=== PATIENT | female | born 1940 | race Asian ===

== ENCOUNTER 2018-09-22 05:10 | Emergency (ER) | payer MEDICARE, MEDICAID ==
[~2018-09-22] VITALS: Ht 147.3 cm; Wt 44.6 kg
[~2018-09-22 05:10] MED LIST: ACET-2119 PO; ATEN25TA PO; CALC-723 PO; CHOL5000 PO; CYAN100070 PO; GABA-530 PO; LISI-604 PO; LISI10TA4 PO; LOPE1TAB46 PO; LORA-641 PO; OLOP2.5D OP; ONDA8TAB12 PO; POLY17PO10 PO; PROC10TA10 PO; SERT25TA PO; TRAM50TA2 PO
[2018-09-22 05:59] LABS: CLARITY,URINE CLEAR (Clear); COLOR,URINE YELLOW (Yellow); GLUCOSE, URINE NEGATIVE (Neg); KETONES,URINE NEGATIVE (Neg); LEUKOCYTE ESTERASE ,URINE TRACE (Neg); NITRITES, URINE NEGATIVE (Neg); OCCULT BLOOD,URINE NEGATIVE (Neg); PH,URINE 6.5 (4.8-8.0); PROTEIN,URINE NEGATIVE (Neg); URINE HCG NEGATIVE (NEG); UROBILINOGEN,URINE 0.2 E.U/dL (0.2-1.0)
[2018-09-22 06:01] LABS: UA COLLECTION TYPE CLN CATCH MIDSTREAM
[2018-09-22 06:04] LABS: BASOPHILS % (AUTO) 0.3 % (0-1); EOSINOPHILS % (AUTO) 0.8 % (0-6); HEMATOCRIT 29.1 % (35.0-45.0); LYMPHOCYTES # (AUTO) 0.8 X10'3 (1.1-4.8); LYMPHOCYTES % (AUTO) 17.8 % (21-51); MEAN CORPUSCULAR HEMOGLOBIN 31.6 PG (27.0-31.0); MEAN CORPUSCULAR HGB CONC 34.3 g/dL (33.0-36.5); MEAN PLATELET VOLUME 7.2 FL (7.4-10.4); MONOCYTES # (AUTO) 0.3 X10'3 (0-0.9); MONOCYTES % (AUTO) 7.3 % (2-12); NEUTROPHILS # (AUTO) 3.3 X10'3 (1.8-7.7); NEUTROPHILS % (AUTO) 73.8 % (42-75); PLATELET COUNT 210 X10'3 (140-440); RED BLOOD COUNT 3.17 X10'6 (4.20-5.60); RED CELL DISTRIBUTION WIDTH 12.9 % (11.5-14.5); WHITE BLOOD COUNT 4.5 X10'3 (4.5-11.0)
[2018-09-22 06:05] LABS: BACTERIA,URINE FEW /HPF (Neg); RBC,URINE NONE SEEN /HPF (0-2); SQUAMOUS EPITHELIAL CELL,UR FEW /LPF (FEW); WBC,URINE 0-4 /HPF (0-4)
[2018-09-22 06:22] LABS: ALANINE AMINOTRANSFERASE 15 U/L (12-78); ALKALINE PHOSPHATASE 45 IU/L (46-116); ANION GAP 7 (8-16); ASPARTATE AMINO TRANSFERASE 17 U/L (10-37); BILIRUBIN,TOTAL 0.4 MG/DL (0.1-1.0); BLOOD UREA NITROGEN 17 MG/DL (7-18); BUN/CREATININE RATIO 15.5 (6.6-38.0); CALCIUM 7.8 MG/DL (8.5-10.1); CHLORIDE 99 MMOL/L (99-107); GLUCOSE 126 MG/DL (70-104); LIPASE 92 U/L (73-393); POTASSIUM 3.8 MMOL/L (3.5-5.1); SODIUM 130 MMOL/L (135-145); TOTAL PROTEIN 6.1 G/DL (6.4-8.2); eGFR 48 ML/MIN
[2018-09-22] MEDS ORDERED: ondansetron/PF 4mg/2ml inj IV ONE (07:40)
[2018-09-22] MEDS ORDERED: morphine 2 MG/ML inj. syringe IV ONE (07:40)
[2018-09-22] MEDS ORDERED: iohexol 300mg/ml 100ml inj. ONE (07:51)
--- NOTE | 2018-09-22 07:53 | NUR ---
STER[facility] TECHNIUQUE USED TO ADM MEDICATIONS, HUB ALCOHOL APPLYAED
[2018-09-22] MEDS ORDERED: heparin sodium, porcine/PF 100unit/ml 5ML syringe IV ONE (10:40)
[2018-09-22 11:08] VITALS: BP 150/70
== END 2018-09-22 11:11 | disposition home or self-care (01) ==
LOC: ER 05:11
DX: G89.29 Other chronic pain (principal); R10.84 Generalized abdominal pain; I10 Essential (primary) hypertension; Z88.6 Allergy status to analgesic agent; Z79.899 Other long term (current) drug therapy
CPT/HCPCS: 36415; 74176; 80053; 81001; 81025; 83690; 85025; 85610; 87088; 96374; 96375; 99285; J1642; J2270; J2405; Q9967

== ENCOUNTER 2019-06-29 08:14 | Day surgery (SDC) | payer MEDICARE, MEDICAID ==
[~2019-06-29] VITALS: Ht 137.2 cm; Wt 45.6 kg
[~2019-06-29 08:14] MED LIST changes: -OLOP2.5D OP; +OLOP2.5D12 OP; -ONDA8TAB12 PO; +ONDA8TAB65 PO
[2019-06-29] MEDS ORDERED: TRAM50TA2 PO (08:47)
[2019-06-29] MEDS ORDERED: METO-384 PO (08:47)
[2019-06-29] MEDS ORDERED: LOSA100T57 PO (08:47)
[2019-06-29 08:52] VITALS: BP 188/74
[2019-06-29] MEDS ORDERED: LIDOcaine 1%/PF 5ML 10 MG/ML VIAL ONE (10:31)
[2019-06-29] MEDS ORDERED: fentaNYL/PF 50MCG/1 ML 2ML syringe ONE (10:31)
[2019-06-29 11:37] VITALS: BP 181/78
[2019-06-29 11:56] VITALS: BP 165/76
== END 2019-06-29 12:06 | disposition home or self-care (01) ==
LOC: U 08:14 → MED 3N 08:14 → U 12:06
PROVIDERS: ATTEND Radiology Vascular & Interventional Radiology
DX: Z45.2 Encounter for adjustment and management of vascular access device (principal); D46.9 Myelodysplastic syndrome, unspecified; Z79.899 Other long term (current) drug therapy; Z88.8 Allergy status to other drugs, medicaments and biological substances; Z80.6 Family history of leukemia
CPT/HCPCS: 36590; J3010

== ENCOUNTER 2020-09-25 00:08 | Emergency (ER) | payer MEDICARE, MEDICAID ==
[~2020-09-25] VITALS: Ht 142.2 cm; Wt 44.5 kg
[~2020-09-25 00:08] MED LIST changes: -ACET-2119 PO; -ATEN25TA PO; -CALC-723 PO; -CHOL5000 PO; -CYAN100070 PO; -GABA-530 PO; -LISI-604 PO; -LISI10TA4 PO; -LOPE1TAB46 PO; -LORA-641 PO; +LOSA100T57 PO; +METO-384 PO; -OLOP2.5D12 OP; -ONDA8TAB65 PO; -POLY17PO10 PO; -PROC10TA10 PO; -SERT25TA PO
[2020-09-25] MEDS ORDERED: ondansetron/PF 4mg/2ml inj IV ONE (00:25)
[2020-09-25] MEDS ORDERED: normal saline 1000ML IV soln IVB ONE (00:25)
[2020-09-25] MEDS: morphine 4 MG/ML inj SYRINge IV PRN ×2 (01:20→11:28)
[2020-09-25 02:17] LABS: BASOPHILS % (AUTO) 0.2 % (0-1); EOSINOPHILS % (AUTO) 0.4 % (0-6); HEMATOCRIT 27.7 % (35.0-45.0); HEMOGLOBIN 9.2 g/dl (12.0-16.0); LYMPHOCYTES # (AUTO) 0.6 X10'3 (1.1-4.8); MEAN CORPUSCULAR HGB CONC 33.2 g/dL (33.0-36.5); MEAN CORPUSCULAR VOLUME 93.4 FL (78-98); MEAN PLATELET VOLUME 7.2 FL (7.4-10.4); MONOCYTES # (AUTO) 0.4 X10'3 (0-0.9); MONOCYTES % (AUTO) 5.2 % (2-12); NEUTROPHILS # (AUTO) 6.9 X10'3 (1.8-7.7); NEUTROPHILS % (AUTO) 87.2 % (42-75); PLATELET COUNT 185 X10'3 (140-440); RED BLOOD COUNT 2.97 X10'6 (4.20-5.60); RED CELL DISTRIBUTION WIDTH 12.6 % (11.5-14.5); WHITE BLOOD COUNT 7.9 X10'3 (4.5-11.0)
[2020-09-25 02:23] LABS: ALANINE AMINOTRANSFERASE 16 U/L (12-78); ALBUMIN 2.4 G/DL (3.4-5.0); ALBUMIN/GLOBULIN RATIO 1.1 (1.1-1.5); ALKALINE PHOSPHATASE 40 IU/L (46-116); ANION GAP 7 (8-16); ASPARTATE AMINO TRANSFERASE 19 U/L (10-37); BILIRUBIN,TOTAL 0.3 MG/DL (0.1-1.0); BLOOD UREA NITROGEN 19 MG/DL (7-18); BUN/CREATININE RATIO 22.1 (6.6-38.0); CALCIUM 6.4 MG/DL (8.5-10.1); CHLORIDE 113 MMOL/L (99-107); CREATININE 0.86 MG/DL (0.40-0.90); GLUCOSE 94 MG/DL (70-104); LIPASE 71 U/L (73-393); POTASSIUM 3.6 MMOL/L (3.5-5.1); SODIUM 144 MMOL/L (135-145); TOTAL PROTEIN 4.6 G/DL (6.4-8.2); eGFR 63 ML/MIN
[2020-09-25 04:10] LABS: CLARITY,URINE CLEAR (Clear); COLOR,URINE STRAW (Yellow); GLUCOSE, URINE NEGATIVE (Neg); KETONES,URINE NEGATIVE (Neg); LEUKOCYTE ESTERASE ,URINE NEGATIVE (Neg); NITRITES, URINE NEGATIVE (Neg); OCCULT BLOOD,URINE NEGATIVE (Neg); PH,URINE 6.5 (4.8-8.0); PROTEIN,URINE NEGATIVE (Neg); UROBILINOGEN,URINE 0.2 E.U/dL (0.2-1.0)
[2020-09-25 04:18] LABS: UA COLLECTION TYPE CLN CATCH MIDSTREAM
[2020-09-25] MEDS ORDERED: morphine 2 MG/ML inj. syringe IV PRN ×2 (05:10)
[2020-09-25] MEDS ORDERED: HYDROcodone/acetaminophen 10/325mg tab PO PRN (05:10)
[2020-09-25] MEDS ORDERED: diphenhydrAMINE 50 mg/ml inj IV PRN (05:10)
[2020-09-25] MEDS ORDERED: ondansetron 4mg rapidly disintigrating tab PO PRN (05:10)
[2020-09-25] MEDS ORDERED: HYDROcodone/acetaminophen 5mg/325mg tablet PO PRN (05:10)
[2020-09-25] MEDS ORDERED: HYDROmorphone inj. 0.5 MG/0.5 ML DISP.SYRIN IV PRN (05:10)
[2020-09-25] MEDS ORDERED: acetaminophen 650mg rectal suppository RC PRN (05:10)
[2020-09-25] MEDS ORDERED: acetaminophen 325mg tablet PO PRN ×3 (05:10→12:05)
[2020-09-25] MEDS ORDERED: mag hydrox/Alum hydrox/simeth 30ml oral suspension PO PRN (05:10)
[2020-09-25] MEDS ORDERED: diphenhydrAMINE 25mg capsule PO PRN (05:10)
[2020-09-25] MEDS ORDERED: magnesium hydroxide 30ml (MOM) UD suspension PO PRN (05:10)
[2020-09-25] MEDS ORDERED: bisacodyl 10mg suppository rectal RC PRN (05:10)
[2020-09-25 05:42] LABS: HEMOGLOBIN A1C 5.5 % (4.5-6.2)
[2020-09-25 05:49] LABS: MAGNESIUM 1.4 MG/DL (1.5-2.4); PHOSPHORUS 3.1 MG/DL (2.3-4.5)
[2020-09-25] MEDS: dextrose 5%-1/2 normal saline 1,000 ML IV SCH ×2 (06:09→15:10)
[2020-09-25 09:11] LABS: PARTIAL THROMBOPLASTIN TIME 24 SECONDS (22-32)
[2020-09-25] MEDS: docusate sod 100mg capsule PO SCH ×2 (10:16→20:18)
[2020-09-25] MEDS: pantoprazole 40mg Tablet.DR PO SCH (10:16)
[2020-09-25] MEDS: losartan 50mg tablet PO SCH (10:16)
[2020-09-25] MEDS: metoprolol succinate 25mg (24-HOUR) SR. Tablet PO SCH (10:16)
[2020-09-25] MEDS: hydrALAZINE 20mg/ml inj. IV SCH ×3 (10:17→20:00)
[2020-09-25] MEDS: heparin, porcine 5000 units/ml vial SQ SCH ×2 (10:17→20:18)
[2020-09-25] MEDS: metroNIDAZOLE-Flagyl 500mg/NS 100 ML IV SCH ×3 (10:17→23:53)
[2020-09-25] MEDS: ciprofloxacin/D5W 200mg/100mL 100 ML IV SCH ×2 (10:18→20:00)
[2020-09-25] MEDS ORDERED: baclofen 10mg tablet PO PRN (12:05)
[2020-09-25] MEDS: ondansetron/PF 4mg/2ml inj IV PRN (19:44)
[2020-09-25] MEDS: diatr meglu/diatrizoate 30ml oral sol.-(3 dose) bottle PO SCH (20:18)
[2020-09-25] MEDS ORDERED: temazepam 15mg capsule PO PRN (21:00)
[2020-09-26] MEDS: ondansetron/PF 4mg/2ml inj IV PRN (00:55)
[2020-09-26] MEDS: hydrALAZINE 20mg/ml inj. IV SCH ×2 (01:39→07:46)
[2020-09-26] MEDS: dextrose 5%-1/2 normal saline 1,000 ML IV SCH ×2 (01:39→06:26)
[2020-09-26] MEDS: pantoprazole 40mg Tablet.DR PO SCH (07:45)
[2020-09-26] MEDS: metoprolol succinate 25mg (24-HOUR) SR. Tablet PO SCH (07:45)
[2020-09-26] MEDS: heparin, porcine 5000 units/ml vial SQ SCH (07:45)
[2020-09-26] MEDS: docusate sod 100mg capsule PO SCH (07:45)
[2020-09-26] MEDS: losartan 50mg tablet PO SCH (07:45)
[2020-09-26] MEDS: diatr meglu/diatrizoate 30ml oral sol.-(3 dose) bottle PO SCH ×2 (07:46→11:14)
[2020-09-26] MEDS: metroNIDAZOLE-Flagyl 500mg/NS 100 ML IV SCH (07:46)
[2020-09-26 08:17] LABS: BASOPHILS % (AUTO) 0.2 % (0-1); EOSINOPHILS # (AUTO) 0.1 X10'3 (0-0.9); EOSINOPHILS % (AUTO) 1.2 % (0-6); HEMATOCRIT 28.1 % (35.0-45.0); LYMPHOCYTES # (AUTO) 0.9 X10'3 (1.1-4.8); LYMPHOCYTES % (AUTO) 18.2 % (21-51); MEAN CORPUSCULAR HGB CONC 32.2 g/dL (33.0-36.5); MEAN CORPUSCULAR VOLUME 96.4 FL (78-98); MEAN PLATELET VOLUME 7.5 FL (7.4-10.4); MONOCYTES # (AUTO) 0.3 X10'3 (0-0.9); MONOCYTES % (AUTO) 6.3 % (2-12); NEUTROPHILS # (AUTO) 3.8 X10'3 (1.8-7.7); NEUTROPHILS % (AUTO) 74.1 % (42-75); PLATELET COUNT 184 X10'3 (140-440); RED BLOOD COUNT 2.91 X10'6 (4.20-5.60); RED CELL DISTRIBUTION WIDTH 13.3 % (11.5-14.5); WHITE BLOOD COUNT 5.1 X10'3 (4.5-11.0)
[2020-09-26 08:34] LABS: ALANINE AMINOTRANSFERASE 17 U/L (12-78); ALBUMIN 2.3 G/DL (3.4-5.0); ALBUMIN/GLOBULIN RATIO 0.9 (1.1-1.5); ALKALINE PHOSPHATASE 36 IU/L (46-116); ANION GAP 10 (8-16); ASPARTATE AMINO TRANSFERASE 21 U/L (10-37); BILIRUBIN,TOTAL 0.3 MG/DL (0.1-1.0); CALCIUM 6.1 MG/DL (8.5-10.1); CHLORIDE 105 MMOL/L (99-107); GLUCOSE 118 MG/DL (70-104); POTASSIUM 3.5 MMOL/L (3.5-5.1); SODIUM 136 MMOL/L (135-145); TOTAL CARBON DIOXIDE 20.7 MMOL/L (24-32); eGFR 48 ML/MIN
[2020-09-26 08:39] LABS: BLOOD UREA NITROGEN 12 MG/DL (7-18); BUN/CREATININE RATIO 10.9 (6.6-38.0)
[2020-09-26] MEDS: ciprofloxacin/D5W 200mg/100mL 100 ML IV SCH (09:13)
[2020-09-26] MEDS ORDERED: iohexol 300mg/ml 100ml inj. ONE (11:14)
[2020-09-26] MEDS ORDERED: ONDA4TAB12 PO (14:06)
[2020-09-26 14:30] VITALS: BP 152/121
--- NOTE | 2020-09-30 13:23 | NUR ---
Case Management DC follow up: [place]
--- NOTE | 2020-09-30 13:58 | NUR ---
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 s/p: ABD pain. Pt daughter Reports: "she is better, super tired today" states pt is independent, is up and around, but went back to bed at 1000. Reports 09/27/20, pt was swollen, resolving. Had appt w/PCP 09/29/20. pt is a [place] pt. Denies: Acute/continuous CP, emergent SOB, resp distress, orthopnea, dyspnea, N/V, hematemesis, weakness, vertigo, syncope episodes, orthostatic hypotension (educated on protocol as precaution), ART, blurry vision, s/s stroke/FAST, dysphagia, bladder pain, dysuria, polyuria, hematuria, retention, abd pain/distention, hematochezia, melena, unexplained bruising, bleeding, fever, chills. Verbalizes understanding of new Rx: zofran for N/V, why prescribed; continues/resumes current Rx as ordered, denies ase r/t polypharmacy. Verbalizes compliance w/aftercare. Verbalizes understanding of s/s that warrant 9-11/ER visit for further evaluation. Pt acknowledges need to schedule/confirm/keep follow up appt w/PCP Porfirio 09/29/20, Oncologist standing appts; Needs met, questions/concerns addressed at DC; No further questions/concerns r/t recent hospital stay and/or DC status at this time.
== END 2020-09-26 14:32 | disposition home or self-care (01) ==
LOC: ER 00:09 → UNDOADMIN 05:09 → ED HOLD 05:09 → UNDODISIN 09-26 14:30
DX: K52.9 Noninfective gastroenteritis and colitis, unspecified (principal); K56.609 Unspecified intestinal obstruction, unspecified as to partial versus complete obstruction; N17.9 Acute kidney failure, unspecified; E86.0 Dehydration; N28.89 Other specified disorders of kidney and ureter
CPT/HCPCS: 36415; 71045; 74176; 74177; 76770; 80053; 81003; 82330; 83036; 83605; 83690; 83735; 83880; 84100; 85025; 85610; 85730; 87040; 87081; 96361; 96365; 96366; 96368; 96372; 96375; 96376; 99285; J0360; J0744; J1644; J2270; J2405; J3490; J7030; Q9963; Q9967; 96374; G0378